=== PATIENT | female | born 1960 | race Caucasian/White ===

== ENCOUNTER → 2016-10-13 | Outpatient (CLI) | payer OTHER ==
[~2016-10-13] MED LIST: ALL180 PO; CRTOTS OT; DECONGESTANT; MOME50SP5; SYN25 PO
--- NOTE | 2016-10-13 14:44 | DIAGNOSTIC IMAGING REPORT ---
BONE SCAN 3 PHASE LIMITED HISTORY: Right ankle injury and pain. TECHNIQUE: Immediately and 3 hours following the intravenous administration of 27.5 mCi of technetium 99 M MDP, 3 phase bone scan of the bilateral ankles/feet were performed. COMPARISON STUDY: None. FINDINGS: No abnormalities uptake on the blood flow sequences. Small focus of radiotracer uptake within the right first MTP joint on the blood pool sequences. This is of doubtful clinical significance. Delayed sequences demonstrate small focus of radiotracer uptake seen in the expected location of the right lateral subtalar joint. No abnormal radiotracer uptake seen within the left foot. IMPRESSION: Small focus of radiotracer uptake seen at the expected location of the right lateral subtalar joint on the delayed sequences only. This is nonspecific and could be related to degenerative change. Follow-up plain film or MRI could be used for confirmation. Electronically signed by: Nguyễn Muniz M.D. 10/13/2016 2:42 PM Dictated Date/Time: 10/13/2016 2:33 PM
== END | disposition home or self-care (01) ==
LOC: C.NUCL 09:36
PROVIDERS: ATTEND Nurse Practitioner
DX: S99.911A Unspecified injury of right ankle, initial encounter (principal); X58.XXXA Exposure to other specified factors, initial encounter

== ENCOUNTER → 2016-12-11 | Outpatient (CLI) | payer OTHER | END | disposition home or self-care (01) | LOC: C.PAPS 13:44 | PROVIDERS: ATTEND Nurse Practitioner | DX: Z01.419 Encounter for gynecological examination (general) (routine) without abnormal findings (principal) ==

== ENCOUNTER → 2017-06-12 | Outpatient (CLI) | payer OTHER ==
[2017-06-12 16:06] LABS: CALCIUM 8.9 mg/dl (8.5-10.1)
[2017-06-12 16:21] LABS: THYROID STIMULATING HORMONE 0.898 uIu/ml (0.300-4.500)
== END | disposition home or self-care (01) ==
LOC: C.LAB1850 14:18
PROVIDERS: ATTEND Internal Medicine Endocrinology, Diabetes & Metabolism
DX: E03.9 Hypothyroidism, unspecified (principal); E06.3 Autoimmune thyroiditis; M81.0 Age-related osteoporosis without current pathological fracture

== ENCOUNTER 2022-08-10 14:35 | Inpatient (IN) ==
[2022-08-10] MEDS ORDERED: LORazepam 0.5 MG TAB PO STA (15:18)
--- NOTE | 2022-08-10 15:37 | XRay Report ---
XR chest 1V portable HISTORY: Hypertension COMPARISON: None. FINDINGS: The lungs are clear. Cardiac silhouette is normal in size. No pleural effusions. No pneumot horax. Mild calcified plaque within the aortic knob. IMPRESSION: No acute process. ACT 112: Negative or not required by law. Electronically signed by: Nguyễn Muniz M.D. 08/10/2022 3:36 PM
[2022-08-10 15:40] LABS: Appearance Urine Clear (Clear); Bacteria Urine Automated Negative (Negative); Bilirubin Urine Negative (Negative); Blood Urine Negative (Negative); Cast Urine Automated 0 /lpf (0-5); Color Urine Yellow; Glucose Urine UA Negative (Negative); Ketones Urine Negative (Negative); Leukocyte Esterase Urine 1+ (Negative); Nitrite Urine Negative (Negative); Protein Urine Negative (Negative); RBC Urine Automated 0-4 /hpf (0-4); Specific Gravity Urine 1.005 (1.000-1.030); Urobilinogen Urine Negative (Negative); pH Urine 7.5 (4.5-7.5)
[2022-08-10 15:42] LABS: iSTAT Creatinine 0.7 mg/dl (0.6-1.3); iSTAT Ionized Calcium 1.11 mmol/l (1.12-1.32); iSTAT Potassium 3.6 mmol/L (3.3-5.0)
[2022-08-10 15:45] LABS: Basophils # (auto) 0.06 K/uL (0-0.2); Basophils % (auto) 0.7 %; Eosinophils # (auto) 0.08 K/uL (0-0.50); Eosinophils % (auto) 0.9 %; Hemoglobin 13.9 g/dl (12.0-16.0); Immature Granulocytes # (auto) 0.03 K/uL (0.00-0.02); Immature Granulocytes % (auto) 0.3 %; Lymphocytes % (auto) 11.4 %; Mean Corpuscular Hemoglobin 28.8 pg (25.0-34.0); Mean Corpuscular Hgb Conc 33.9 g/dL (32.0-36.0); Mean Corpuscular Volume 84.9 fL (80.0-100.0); Mean Platelet Volume 9.9 fL (9.4-12.3); Monocytes # (auto) 0.55 K/uL (0.24-0.82); Monocytes % (auto) 6.3 %; Neutrophils # (auto) 7.07 K/uL (1.4-6.5); Neutrophils % (auto) 80.4 %; Platelet Count 291 K/uL (130-400); RDW Standard Deviation 40.3 fL (36.4-46.3); Red Blood Count 4.83 M/uL (3.93-5.22); White Blood Count 8.79 K/ul (4.8-10.8)
[2022-08-10] MEDS ORDERED: OPTIRAY 320 500ml IV ONE (15:47)
--- NOTE | 2022-08-10 16:02 | CT Scan Report ---
HEAD CT NONCONTRAST CT DOSE: HISTORY: Stroke Like Symptoms TECHNIQUE: Multiaxial CT images of the head were performed without the use of intravenous contrast. A utomated exposure control was utilized for this study. A dose lowering technique was utilized adheri ng to the principles of ALARA. Comparison: Head CT 03/17/2022. Findings: The paranasal sinuses and mastoid air cells are clear. The calvarium and skull base are int act. The ventricles and sulci are within normal limits. There is no mass, hematoma, midline shift, or acute infarct. Impression: No acute intracranial abnormality. ACT 112: Negative or not required by law. Electronically signed by: Nguyễn Muniz M.D. 08/10/2022 3:59 PM
--- NOTE | 2022-08-10 16:11 | CT Scan Report ---
HEAD & NECK CTA HISTORY: Stroke Like Symptoms TECHNIQUE: Multiaxial CT images of the head were performed following the intravenous administration o f contrast to evaluate the major cerebral vessels. Multiaxial CT images of the neck were also perform ed following the intravenous administration of contrast to evaluate the major cervical vessels. Maxim um intensity projection images were also obtained. A dose lowering technique was utilized adhering to the principles of ALARA. COMPARISON: None. FINDINGS: There is no mass, hematoma, midline shift, or acute infarct. Visualized intracranial internal carotid arteries, distal vertebral arteries, and basilar artery are widely patent. There is no significant s tenosis, occlusion, or aneurysm seen within the bilateral ACAs, MCAs, or plastic surgery specialist. The major dural venous sinuses appear patent. There is a hypoplastic distal left vertebral artery. Persistent left posterio r circulation is noted. The aortic arch and proximal great vessels are widely patent. There is no significant stenosis, occ lusion, or dissection identified within the bilateral common carotid, internal carotid, or vertebral arteries. There is a 4 mm saccular aneurysm at the distal right cervical internal carotid artery near the skull base best seen on coronal image 48. Moderate emphysema. Hypoplastic left vertebral artery. IMPRESSION: 1. No significant stenosis, occlusion, or aneurysm within the [place]. 2. No significant stenosis, occlusion, or dissection identified within the carotid or vertebral arter ies. 3. A 4 mm saccular aneurysm within the distal right cervical internal carotid artery. ACT 112: Negative or not required by law. Electronically signed by: Nguyễn Muniz M.D. 08/10/2022 4:08 PM
--- NOTE | 2022-08-10 16:11 | CT Scan Report ---
HEAD & NECK CTA HISTORY: Stroke Like Symptoms TECHNIQUE: Multiaxial CT images of the head were performed following the intravenous administration o f contrast to evaluate the major cerebral vessels. Multiaxial CT images of the neck were also perform ed following the intravenous administration of contrast to evaluate the major cervical vessels. Maxim um intensity projection images were also obtained. A dose lowering technique was utilized adhering to the principles of ALARA. COMPARISON: None. FINDINGS: There is no mass, hematoma, midline shift, or acute infarct. Visualized intracranial internal carotid arteries, distal vertebral arteries, and basilar artery are widely patent. There is no significant s tenosis, occlusion, or aneurysm seen within the bilateral ACAs, MCAs, or pattern scratcher. The major dural venous sinuses appear patent. There is a hypoplastic distal left vertebral artery. Persistent left posterio r circulation is noted. The aortic arch and proximal great vessels are widely patent. There is no significant stenosis, occ lusion, or dissection identified within the bilateral common carotid, internal carotid, or vertebral arteries. There is a 4 mm saccular aneurysm at the distal right cervical internal carotid artery near the skull base best seen on coronal image 48. Moderate emphysema. Hypoplastic left vertebral artery. IMPRESSION: 1. No significant stenosis, occlusion, or aneurysm within the [place]. 2. No significant stenosis, occlusion, or dissection identified within the carotid or vertebral arter ies. 3. A 4 mm saccular aneurysm within the distal right cervical internal carotid artery. ACT 112: Negative or not required by law. Electronically signed by: Nguyễn Muniz M.D. 08/10/2022 4:08 PM
[2022-08-10 16:24] LABS: Albumin Globulin Ratio 1.4 (0.9-2); Albumin Level 4.3 gm/dl (3.4-5.0); BUN Creatinine Ratio 22.4 (10-20); Bilirubin,Total 0.5 mg/dl (0.2-1.0); Calcium 9.4 mg/dl (8.5-10.1); Creatinine Clr Calc Pharmacy 92.5 ml/min; Est GFR (African American) 113.7 ml/min; Est GFR (Non-African American) 98.1 ml/min; Globulin 3.1 gm/dl (2.5-4.0); Potassium 3.6 mmol/L (3.5-5.1); Total Protein 7.4 gm/dl (6.0-8.3); Troponin I High Sensitivity 3.6 pg/ml (0-14)
[2022-08-10] MEDS ORDERED: hydrALAZINE HCL 20 MG/ML VIAL IV ONE (16:25)
[2022-08-10] MEDS ORDERED: ASPIRIN CHEW 324 MG PO STA (16:25)
--- NOTE | 2022-08-10 18:25 | History & Physical Report ---
Date of Service August 10, 2022 Assessment & Plan (1) Stroke-like symptoms: Plan: Present on admission with lightheadedness, palpitation, numbness and weakness all over her body. Possible related to TIA vs hypertensive urgency Need to r/o CVA CT head showed no acute intracranial abnormality. CTA head/neck showed no significant stenosis, occlusion, or aneurysm within the [place] of [place]. 4 mm saccular aneurysm within the distal right cervical inte rnal carotid artery. Received aspirin 325mg in the ER Will get MRI of head Will check resting echo Check lipid panel and Hba1c Neuro consult PT/OT/Speech eval Continue aspirin 81mg Continue neuro check Hypertensive urgency BP on admission 197/118 Pt is not on any BP meds BP improved to 137/88 Continue monitor Hx Breast cancer Continue anastrozole Follow up with oncology outpatient Osteoporosis Continue Boniva weekly continue calcium and vitamin D Hypothyroidism Will check TSH Continue levothyroxine DVT px on Lovenox Code status Full code History of Present Illness Chief Complaint: Strokelike symptom Dizziness Primary Care Provider: Jose Higgins MD 62-year-old female with past medical history of hypothyroidism, dyslipidemia, osteoporosis, left breast cancer, anxiety, allergic rhinitis presented to the ER with stroke like symptoms. Patient said today around noon she developed lightheadedness, palpitation, numbness and weakness all over her body. She went to the [facility] and she was advised to come to the ER. She said she thought her symptoms might be related to an allergic reaction from [place] that she just started. She said that she felt dizzy with the feeling the room was spinning. she became nauseated and her body felt weak and numb. She said that she could not tell if her vision was blurry because she was just put eyes drops. She said that she took the [place] last month and she did not develop any side effect. She said that in the past she used to have dizziness from her sinus problems but that is better because she has not been using meclizine for awhile. She said that there was no facial droop and no slurred speech. She said because of the dizziness her gait was unsteady. in the ER she was found with elevated blood pressure (197/112). Denies any chest pain, SOB, fever, rash, vomiting and diarrhea. Allergies Allergy/AdvReac Type Severity Reaction Status Date / Time adhesive tape Allergy Severe Rash Verified 08/10/22 15:47 Sulfa (Sulfonamide Allergy Severe Hives Verified 08/10/22 15:47 Antibiotics) metronidazole Allergy Intermediate Rash Verified 08/10/22 15:47 Home Medications Medication Instructions Recorded Confirmed Type guaifenesin 600 mg tablet, 600 mg PO BID PRN Congestion 06/20/19 08/10/22 History extended release 12 hr (Mucinex) multivitamin 1 tab PO DAILY 06/20/19 08/10/22 History cholecalciferol (vitamin D3) 25 1,000 unit PO DAILY 06/06/20 08/10/22 History mcg (1,000 unit) capsule anastrozole 1 mg tablet (Arimidex) 1 mg PO DAILY 10/09/21 08/10/22 History calcium carbonate 600 mg calcium 600 mg PO BID 10/09/21 08/10/22 History (1,500 mg) tablet fluticasone propionate 50 1 spray intranasal BID 10/09/21 08/10/22 History mcg/actuation nasal spray,suspension sodium chloride 0.65 % nasal spray 1 spray intranasal BID PRN Nasal 10/09/21 08/10/22 History aerosol (Saline Nasal) Congestion loratadine-pseudoephedrine ER 10 1 tab PO DAILY PRN Congestion 03/20/22 08/10/22 History mg-240 mg tablet,extended [id number] (Claritin-D 24 Hour) ibandronate 150 mg tablet (Boniva) See Rx Instructions PO .COMPLEX #6 06/18/22 08/10/22 Rx tabs oxybutynin chloride 5 mg 5 mg PO DAILY #90 tabs 07/04/22 08/10/22 Rx tablet,extended release 24 hr levothyroxine 75 mcg capsule 75 mcg PO DAILY #90 caps 07/07/22 08/10/22 Rx glucosamine fountain dipot-chond fountain 1 cap PO DAILY 08/10/22 08/10/22 History sod-C-Mn 500 mg-400 mg-66 mg-3 mg cap niacin 250 mg tablet 0 mg PO DAILY 08/10/22 08/10/22 History omega-3 fatty acids 1,000 mg 1,000 mg PO DAILY 08/10/22 08/10/22 History capsule Past Med/Surg History Medical History Allergic rhinitis Anxiety Female pelvic inflammatory disease Resolved in distant past GERD (gastroesophageal reflux disease) very rare Ingrid's thyroiditis High cholesterol History of ectopic Hyperglycemia resolved - 1979 Hyperlipidemia Hypothyroidism Interstitial cystitis Osteoporosis Surgical History History of breast surgery (09/11/21) Re-excision of left breast & SLN Biopsy (Dr. Argelia Augustin) + evacuation of hematoma History of fracture of wrist (12/2020) With plates/pins placed History of left breast biopsy (08/21/21) Core Biopsy (Dr. Argelia Augustin) History of removal of cyst (1986) Bartholin cyst removal - benign History of right breast biopsy (03/21/11) Core Biopsy/Lumpectomy - Atypical Ductal Hyperplasia (Dr. Gilbert) History of right breast biopsy (08/07/21) Ductal Hyperplasia found (Dr. Argelia Augustin) - opted for close imaging follow up History of surgery (09/14/17) Left Leg pins / rods placed in [place] Family History Mother No problems noted. Father , Passed age 82 of MD No problems noted. Sister , Passed age 18 of alcoholism/CVA No problems noted. Sister No problems noted. Sister No problems noted. Son No problems noted. 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 [employer] Feels Safe at Home: Yes Childhood Exposure to Second-Hand Smoke: Yes caffeine: No during the past year weight has: remained stable Dental Care, Regularly: Yes Assistive Devices: None Review of Systems Review of Systems: All systems reviewed & are unremarkable except as noted in HPI & below Physical Exam Physical Exam: General- No acute distress Head- atraumatic Eyes- PERRL, EOMI, ENT- oropharynx clear Neck- supple, no JVD Lungs- clear to auscultation Heart- regular rhythm; no murmur Abdomen- normal bowel sounds, soft, nontender Extremities- no calf tenderness Neuro- alert, oriented x 3; PERRL, EOMI; no facial palsy; no dysarthria, normal strength and sensation Skin- warm & dry Results & Data Results & Data ([facility]) Vital Signs (Past 12 Hours) Vital Signs Temp Pulse Pulse Resp BP BP Pulse Ox 08/10/22 18:15 72 16 137/88 99 08/10/22 16:26 72 16 175/100 H 99 08/10/22 15:35 68 18 188/105 H 100 08/10/22 15:06 69 18 177/104 H 98 08/10/22 15:06 98 08/10/22 14:40 36.6 C 77 18 197/112 H 98 O2 Del Method 08/10/22 18:15 Room Air 08/10/22 16:26 Room Air 08/10/22 15:35 Room Air 08/10/22 15:06 Room Air 08/10/22 15:06 Room Air 08/10/22 14:40 Room Air Diagnostic Findings Laboratory Results WBC 8.79 K/ul (4.8-10.8) 08/10/22 15: RBC 4.83 M/uL (3.93-5.22) 08/10/22 15:23 Hgb 13.9 g/dl (12.0-16.0) 08/10/22 15:23 POC Hgb 15.0 g/dl (12.0-16.0) 08/10/22 15:29 Hct 41.0 % (34.1-44.9) 08/10/22 15: POC Hct 44 % (37-47) 08/10/22 15:29 MCV 84.9 fL (80.0-100.0) 08/10/22 15: MCH 28.8 pg (25.0-34.0) 08/10/22 15: MCHC 33.9 g/dL (32.0-36.0) 08/10/22 15: RDW Std Deviation 40.3 fL (36.4-46.3) 08/10/22: RDW Coeff of Vidya 13.0 % (11.5-14.5) 08/10/22 15: Plt Count 291 K/uL (130-400) 08/10/22 15: MPV 9.9 fL (9.4-12.3) 08/10/22 15: Immature Gran % (Auto) 0.3 % 08/10/22 15: Neut % (Auto) 80.4 % 08/10/22 15: Lymph % (Auto) 11.4 % 08/10/22 15: Bee % (Auto) 6.3 % 08/10/22 15: Eos % (Auto) 0.9 % 08/10/22 15: Baso % (Auto) 0.7 % 08/10/22 15: Neut # (Auto) 7.07 K/uL (1.4-6.5) H 08/10/22: Lymph # (Auto) 1.00 K/uL (1.2-3.4) L 08/10/22 15: Bee # (Auto) 0.55 K/uL (0.24-0.82) 08/10/22 15: Eos # (Auto) 0.08 K/uL (0-0.50) 08/10/22 15: Baso # (Auto) 0.06 K/uL (0-0.2) 08/10/22: Immature Gran # (Auto) 0.03 K/uL (0.00-0.02) H 08/10/22 15: POC Sodium 129 mmol/L (135-144) L 08/10/22 15: Sodium 128 mmol/L (136-145) L 08/10/22 15: POC Potassium 3.6 mmol/L (3.3-5.0) 08/10/22 15: Potassium 3.6 mmol/L (3.5-5.1) 08/10/22 15: POC Chloride 95 mmol/L (101-112) L 08/10/22 15: Chloride 95 mmol/L (98-107) L 08/10/22 15: Carbon Dioxide 25 mmol/L (21-32) 08/10/22 15: POC Total CO2 24 mmol/L (24-31) 08/10/22 15: Anion Gap 8 (3-11) 08/10/22 15:23 POC Anion Gap 15.0 mmol/L (16-25) L 08/10/22 15: POC BUN 13 mg/dl (7-18) 08/10/22 15: BUN 13 mg/dl (6-23) 08/10/22 15: Creatinine 0.58 mg/dl (0.6-1.2) L 08/10/22 15: POC Creatinine 0.7 mg/dl (0.6-1.3) 08/10/22: Est Cr Clr Drug Dosing 92.5 ml/min 08/10/22 15: Est GFR ( Amer) 113.7 ml/min 08/10/22: Est GFR (Non-Af Amer) 98.1 ml/min 08/10/22 BUN/Creatinine Ratio 22.4 (10-20) H 08/10/22 15: Glucose 104 mg/dl (70-99(Fasting)) H 08/10/22: POC Glucose (other) 110 mg/dl (70-99) H 08/10/22: Calcium 9.4 mg/dl (8.5-10.1) 08/10/22 15: POC Ioniz Calcium Alysia 1.11 mmol/l (1.12-1.32) L 08/10/22: Total Bilirubin 0.5 mg/dl (0.2-1.0) 08/10/22 15: AST 17 U/L (13-39) 08/10/22: ALT 13 U/L (7-52) 08/10/22: Alkaline Phosphatase 57 U/L (34-104) 08/10/22 15: Troponin I High Sens 3.6 pg/ml (0-14) 08/10/22: Total Protein 7.4 gm/dl (6.0-8.3) 08/10/22: Albumin 4.3 gm/dl (3.4-5.0) 08/10/22 15: Globulin 3.1 gm/dl (2.5-4.0) 08/10/22: Albumin/Globulin Ratio 1.4 (0.9-2) 08/10/22 15: Urine Color Yellow 08/10/22 15:23 Urine Appearance Clear (Clear) 08/10/22 15: Urine pH 7.5 (4.5-7.5) 08/10/22 15:23 Ur Specific [place] 1.005 (1.000-1.030) 08/10/22 15:23 Urine Protein Negative (Negative) 08/10/22 15: Urine Glucose (UA) Negative (Negative) 08/10/22 15: Urine Ketones Negative (Negative) 08/10/22 15: Urine Blood Negative (Negative) 08/10/22 15: Urine Nitrite Negative (Negative) 08/10/22 15: Urine Bilirubin Negative (Negative) 08/10/22 15: Urine Urobilinogen Negative (Negative) 08/10/22 15: Ur Leukocyte Esterase 1+ (Negative) H 08/10/22 15: Urine WBC (Auto) 1-5 /hpf (0-5) 08/10/22 15: Urine RBC (Auto) 0-4 /hpf (0-4) 08/10/22 15: U Hyaline Cast (Auto) 0 /lpf (0-5) 08/10/22 15: U Epithel Cells (Auto) 5-10 /lpf (0-5) H 08/10/22 15:23 Urine Bacteria (Auto) Negative (Negative) 08/10/22 15:23 SARS-CoV-2, RNA, NAAT NEGATIVE (NEGATIVE) 08/10/22 16:05 Impressions Chest X-Ray 08/10/22 14:52 XR chest 1V portable HISTORY: Hypertension COMPARISON: None. FINDINGS: The lungs are clear. Cardiac silhouette is normal in size. No pleural effusions. No pneumothorax. Mild calcified plaque within the aortic knob. IMPRESSION: No acute process. ACT 112: Negative or not required by law. Electronically signed by: Nguyễn Muniz M.D. 08/10/2022 3:[address] 08/10/22 15:[address] DOSE: HISTORY: Stroke Like Symptoms TECHNIQUE: Multiaxial CT images of the head were performed without the use of intravenous contrast. Automated exposure control was utilized for this study. A dose lowering technique was utilized adhering to the principles of ALARA. Comparison: Head CT 03/17/2022. Findings: The paranasal sinuses and mastoid air cells are clear. The calvarium and skull base are intact. The ventricles and sulci are within normal limits. There is no mass, hematoma, midline shift, or acute infarct. Impression: No acute intracranial abnormality. ACT 112: Negative or not required by law. Electronically signed by: Nguyễn Muniz M.D. 08/10/2022 3:59 PM Head CTA 08/10/22 15:17 HEAD & NECK CTA HISTORY: Stroke Like Symptoms TECHNIQUE: Multiaxial CT images of the head were performed following the intravenous administration of contrast to evaluate the major cerebral vessels. Multiaxial CT images of the neck were also performed following the intravenous administration of contrast to evaluate the major cervical vessels. Maximum intensity projection images were also obtained. A dose lowering technique was utilized adhering to the principles of ALARA. COMPARISON: None. FINDINGS: There is no mass, hematoma, midline shift, or acute infarct. Visualized intracranial internal carotid arteries, distal vertebral arteries, and basilar artery are widely patent. There is no significant stenosis, occlusion, or aneurysm seen within the bilateral ACAs, MCAs, or seating upholsterer. The major dural venous sinuses appear patent. There is a hypoplastic distal left vertebral artery. Persistent left posterior circulation is noted. The aortic arch and proximal great vessels are widely patent. There is no significant stenosis, occlusion, or dissection identified within the bilateral common carotid, internal carotid, or vertebral arteries. There is a 4 mm saccular aneurysm at the distal right cervical internal carotid artery near the skull base best seen on coronal image 48. Moderate emphysema. Hypoplastic left vertebral artery. IMPRESSION: 1. No significant stenosis, occlusion, or aneurysm within the [place]. 2. No significant stenosis, occlusion, or dissection identified within the carotid or vertebral arteries. 3. A 4 mm saccular aneurysm within the distal right cervical internal carotid artery. ACT 112: Negative or not required by law. Electronically signed by: Nguyễn Muniz M.D. 08/10/2022 4:08 PM Neck CTA 08/10/22 15:17 HEAD & NECK CTA HISTORY: Stroke Like Symptoms TECHNIQUE: Multiaxial CT images of the head were performed following the intravenous administration of contrast to evaluate the major cerebral vessels. Multiaxial CT images of the neck were also performed following the intravenous administration of contrast to evaluate the major cervical vessels. Maximum intensity projection images were also obtained. A dose lowering technique was utilized adhering to the principles of ALARA. COMPARISON: None. FINDINGS: There is no mass, hematoma, midline shift, or acute infarct. Visualized intracranial internal carotid arteries, distal vertebral arteries, and basilar artery are widely patent. There is no significant stenosis, occlusion, or aneurysm seen within the bilateral ACAs, MCAs, or seating upholsterer. The major dural venous sinuses appear patent. There is a hypoplastic distal left vertebral artery. Persistent left posterior circulation is noted. The aortic arch and proximal great vessels are widely patent. There is no significant stenosis, occlusion, or dissection identified within the bilateral common carotid, internal carotid, or vertebral arteries. There is a 4 mm saccular aneurysm at the distal right cervical internal carotid artery near the skull base best seen on coronal image 48. Moderate emphysema. Hypoplastic left vertebral artery. IMPRESSION: 1. No significant stenosis, occlusion, or aneurysm within the [place]. 2. No significant stenosis, occlusion, or dissection identified within the carotid or vertebral arteries. 3. A 4 mm saccular aneurysm within the distal right cervical internal carotid artery. ACT 112: Negative or not required by law. Electronically signed by: Nguyễn Muniz M.D. 08/10/2022 4:08 PM Code Status & VTE Plan VTE Prophylaxis Plan VTE Prophylaxis will be ordered: Yes
--- NOTE | 2022-08-10 18:33 | Emergency Department Note ---
Impression & Plan Stroke-like symptoms, Severe hypertension, Acute hyponatremia ED Provider Note INFORMANT: Patient ED PROVIDER(S): Raffaele Tamayo MD CHIEF COMPLAINT: Numbness and dizziness PLAN: Disposition: Admitted Condition: Good Outpatient prescription management: none Referral: None MEDICAL DECISION MAKING: Patient presented complaining with about 3 hours worth of numbness and dizziness. She had some minor findings on examination. I did discuss this with nursing and an i-STAT was performed as well as additional labs. As we discussed the work-up and symptoms the patient was somewhat anxious. She did not appear to be panicked or having anxiety as the cause of the issues. She was offered and accepted a dose of lorazepam. Her ECG was normal. The patient was taken promptly for CT imaging including angiography. No acute thrombosis or ischemia were noted. The patient was found to have an incidental right ICA aneurysm. She was informed of this. Her CBC and chemistry panels revealed hyponatremia. The patient also had a negative urinalysis. Chest x-ray was negative. The patient had significantly high blood pressure. I did order hydralazine however on reassessment the patient's blood pressure did drop 25 points and her symptoms had abated. She was given a dose of aspirin. I discussed further management in the hospital will be necessary. [facility] Patient was evaluated in the ER and admitted for further management. Triage Nursing notes reviewed and agree them. Vital Signs: reviewed and remarkable for severe hypertension Differential diagnosis: CVA, TIA infection, dehydration, metabolic abnormality, hypo/hyperglycemia, electrolyte disturbance, anemia, hypoxia, cardiac sources, intracerebral event, toxicologic, neurologic, as well as other pathologies. Diagnostics interpreted by me: EC Lead ECG performed and revealed Normal sinus rhythm at 63, normal [place], QRS normal. No elevation or depression. No PACs or PVCs Cardiac Monitoring: Cardiac monitoring ordered by me: The patient was placed on continuous cardiac monitoring and observed. It revealed a normal sinus rhythm at 72 beats per minute without ectopy or evidence of dysrhythmia. Imaging studies: CT scans and chest x-ray as noted below HPI: The patient is a 62 year old female who presents to the Emergency Room with complaints of numbness and dizziness. This started about 3 hours ago and is persisting. The patient also notes the following associated symptoms, tingling in the left side of the face, occasional headaches, ongoing soreness in the left arm(For the last several months). The patient has taken no medication for relieving factors. Current pain is rated as 2/10. Patient states she is was in good health and eating normally. No sick contacts. Pt denies LOC, fevers, chills, diaphoresis, visual changes, neck pain, chest pain, breathing difficulties, nausea, vomiting, abdominal pain, back pain, melena, hematochezia, urinary symptoms, weakness, lymphadenopathy, rash, or other complaints. ROS: See above HPI for pertinent positives & negatives. A total of 10 systems reviewed and were otherwise negative. PAST MEDICAL HISTORY:See Below , breast cancer PAST SURGICAL HISTORY:See Below FAMILY HISTORY:See Below SOCIAL HISTORY:See Below, non-smoker HOME MEDICATIONS:See Below ALLERGIES:See Below VITALS:See Below PHYSICAL EXAMINATION: GENERAL: Awake, alert, concerned-appearing, in no distress HENT: Normocephalic, atraumatic. Oropharynx unremarkable. EYES: Normal conjunctiva. Sclera non-icteric. PERRLA. EOMI NECK: Inspection normal. Non-tender. Supple. No nuchal rigidity. FROM. No masses. RESPIRATORY: Clear to auscultation. No wheezes. No rales. Normal respiratory effort. CARDIAC: Normal rate. Normal rhythm. No murmurs. No rubs. Extremities warm and well perfused. Pulses equal. No JVD. GI: Soft, non-distended. No tenderness to palpation. No rebound or guarding. No masses. RECTAL: Deferred. MUSCULOSKELETAL: Atraumatic. Chest examination reveals no tenderness. The back is symmetrical on inspection without obvious abnormality. There is no CVA tenderness to palpation. No joint edema. LOWER EXTREMITIES: Calves are equal size bilaterally and non-tender. No edema. No discoloration. NEURO: Normal sensorium. Patient notes decreased sensation in the left side of the face no in the left arm. Other sensory or motor deficits noted. Speech normal. Cranial nerves II through XII tact otherwise. SKIN: No rash or jaundice noted. Raffaele Tamayo MD Past Med/Surg History Medical History Allergic rhinitis Anxiety Female pelvic inflammatory disease GERD (gastroesophageal reflux disease) Ingrid's thyroiditis High cholesterol History of ectopic Hyperglycemia Hyperlipidemia Hypothyroidism Interstitial cystitis Osteoporosis Surgical History History of breast surgery (09/11/21) History of fracture of wrist (12/2020) History of left breast biopsy (08/21/21) History of removal of cyst (1986) History of right breast biopsy (03/21/11) History of right breast biopsy (08/07/21) History of surgery (09/14/17) Family History Mother No problems noted. Father No problems noted. Sister No problems noted. Sister No problems noted. Sister No problems noted. Son No problems noted. 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 [employer] Feels Safe at Home: Yes Childhood Exposure to Second-Hand Smoke: Yes caffeine: No during the past year weight has: remained stable Dental Care, Regularly: Yes Allergies Allergies Allergy/AdvReac Type Severity Reaction Status Date / Time adhesive tape Allergy Severe Rash Verified 08/10/22 15:47 Sulfa (Sulfonamide Allergy Severe Hives Verified 08/10/22 15:47 Antibiotics) metronidazole Allergy Intermediate Rash Verified 08/10/22 15:47 Home Meds Home Medications Medication Instructions Recorded Confirmed guaifenesin 600 mg tablet, 600 mg PO BID PRN Congestion 06/20/19 08/10/22 extended release 12 hr (Mucinex) multivitamin 1 tab PO DAILY 06/20/19 08/10/22 cholecalciferol (vitamin D3) 25 1,000 unit PO DAILY 06/06/20 08/10/22 mcg (1,000 unit) capsule anastrozole 1 mg tablet (Arimidex) 1 mg PO DAILY 10/09/21 08/10/22 calcium carbonate 600 mg calcium 600 mg PO BID 10/09/21 08/10/22 (1,500 mg) tablet fluticasone propionate 50 1 spray intranasal BID 10/09/21 08/10/22 mcg/actuation nasal spray,suspension sodium chloride 0.65 % nasal spray 1 spray intranasal BID PRN Nasal 10/09/21 08/10/22 aerosol (Saline Nasal) Congestion loratadine-pseudoephedrine ER 10 1 tab PO DAILY PRN Congestion 03/20/22 08/10/22 mg-240 mg tablet,extended [id number] (Claritin-D 24 Hour) glucosamine fountain dipot-chond fountain 1 cap PO DAILY 08/10/22 08/10/22 sod-C-Mn 500 mg-400 mg-66 mg-3 mg cap niacin 250 mg tablet 0 mg PO DAILY 08/10/22 08/10/22 omega-3 fatty acids 1,000 mg 1,000 mg PO DAILY 08/10/22 08/10/22 capsule Previous Rx's Medication Instructions Recorded ibandronate 150 mg tablet (Boniva) See Rx Instructions PO .COMPLEX #6 06/18/22 tabs oxybutynin chloride 5 mg 5 mg PO DAILY #90 tabs 07/04/22 tablet,extended release 24 hr levothyroxine 75 mcg capsule 75 mcg PO DAILY #90 caps 07/07/22 Results & Data (ED) Vital Signs Vital Signs - 24 hr 08/10/22 14:40 08/10/22 15:06 08/10/22 15:06 Temperature 36.6 C Temperature Source Temporal Artery Scan Pulse Rate 77 Pulse Rate [Apical] 69 Respiratory Rate 18 18 Respiratory Effort / Characteristics Non-Labored Non-Labored Spontaneous Respiratory Depth Normal Normal Blood Pressure 197/112 H Blood Pressure [Right Arm] 177/104 H Blood Pressure Mean 140 Blood Pressure Mean [Right Arm] 128 Blood Pressure Position [Right Arm] Pulse Oximetry 98 98 98 Oxygen Delivery Method Room Air Room Air Room Air Sepsis Recent Fever Within 48 Hours No Sepsis New/Unexplained Change in Mental Status N/A Sepsis Action Taken by Nursing No Action Required 08/10/22 15:35 08/10/22 16:26 08/10/22 18:15 Temperature Temperature Source Pulse Rate Pulse Rate [Apical] 68 72 72 Respiratory Rate 18 16 16 Respiratory Effort / Characteristics Non-Labored Non-Labored Spontaneous Non-Labored Respiratory Depth Normal Normal Normal Blood Pressure Blood Pressure [Right Arm] 188/105 H 175/100 H 137/88 Blood Pressure Mean Blood Pressure Mean [Right Arm] 132 125 104 Blood Pressure Position [Right Arm] Lying Pulse Oximetry 100 99 99 Oxygen Delivery Method Room Air Room Air Room Air Sepsis Recent Fever Within 48 Hours Sepsis New/Unexplained Change in Mental Status Sepsis Action Taken by Nursing Laboratory Data Result diagrams: 08/10/22 15:23 08/10/22 15:23 Lab Results 08/10/22 08/10/22 08/10/22 Range/Units 15:23 15:23 15:23 WBC 8.79 (4.8-10.8) K/ul RBC 4.83 (3.93-5.22) M/uL Hgb 13.9 (12.0-16.0) g/dl POC Hgb (12.0-16.0) g/dl Hct 41.0 (34.1-44.9) % POC Hct (37-47) % MCV 84.9 (80.0-100.0) fL MCH 28.8 (25.0-34.0) pg MCHC 33.9 (32.0-36.0) g/dL RDW Std Deviation 40.3 (36.4-46.3) fL RDW Coeff of Vidya 13.0 (11.5-14.5) % Plt Count 291 (130-400) K/uL MPV 9.9 (9.4-12.3) fL Immature Gran % (Auto) 0.3 % Neut % (Auto) 80.4 % Lymph % (Auto) 11.4 % [place] % (Auto) 6.3 % Eos % (Auto) 0.9 % Baso % (Auto) 0.7 % Neut # (Auto) 7.07 H (1.4-6.5) K/uL Lymph # (Auto) 1.00 L (1.2-3.4) K/uL [place] # (Auto) 0.55 (0.24-0.82) K/uL Eos # (Auto) 0.08 (0-0.50) K/uL Baso # (Auto) 0.06 (0-0.2) K/uL Immature Gran # (Auto) 0.03 H (0.00-0.02) K/uL POC Sodium (135-144) mmol/L Sodium 128 L (136-145) mmol/L POC Potassium (3.3-5.0) mmol/L Potassium 3.6 (3.5-5.1) mmol/L POC Chloride (101-112) mmol/L Chloride 95 L (98-107) mmol/L Carbon Dioxide 25 (21-32) mmol/L POC Total CO2 (24-31) mmol/L Anion Gap 8 (3-11) POC Anion Gap (16-25) mmol/L POC BUN (7-18) mg/dl BUN 13 (6-23) mg/dl Creatinine 0.58 L (0.6-1.2) mg/dl POC Creatinine (0.6-1.3) mg/dl Est Cr Clr Drug Dosing 92.5 ml/min Est GFR ( Amer) 113.7 ml/min Est GFR (Non-Af Amer) 98.1 ml/min BUN/Creatinine Ratio 22.4 H (10-20) Glucose 104 H (70-99(Fasting)) mg/dl POC Glucose (other) (70-99) mg/dl Calcium 9.4 (8.5-10.1) mg/dl POC Ioniz Calcium [place]lys[place] (1.12-1.32) mmol/l Total Bilirubin 0.5 (0.2-1.0) mg/dl AST 17 (13-39) U/L ALT 13 (7-52) U/L Alkaline Phosphatase 57 (34-104) U/L Troponin I High Sens 3.6 (0-14) pg/ml Total Protein 7.4 (6.0-8.3) gm/dl Albumin 4.3 (3.4-5.0) gm/dl Globulin 3.1 (2.5-4.0) gm/dl Albumin/Globulin Ratio 1.4 (0.9-2) Urine Color Yellow Urine Appearance Clear (Clear) Urine pH 7.5 (4.5-7.5) Ur Specific [place] 1.005 (1.000-1.030) Urine Protein Negative (Negative) Urine Glucose (UA) Negative (Negative) Urine Ketones Negative (Negative) Urine Blood Negative (Negative) Urine Nitrite Negative (Negative) Urine Bilirubin Negative (Negative) Urine Urobilinogen Negative (Negative) Ur Leukocyte Esterase 1+ H (Negative) Urine WBC (Auto) 1-5 (0-5) /hpf Urine RBC (Auto) 0-4 (0-4) /hpf U Hyaline Cast (Auto) 0 (0-5) /lpf U Epithel Cells (Auto) 5-10 H (0-5) /lpf Urine Bacteria (Auto) Negative (Negative) SARS-CoV-2, RNA, NAAT (NEGATIVE) 08/10/22 08/10/22 Range/Units 15:29 16:05 WBC (4.8-10.8) K/ul RBC (3.93-5.22) M/uL Hgb (12.0-16.0) g/dl POC Hgb 15.0 (12.0-16.0) g/dl Hct (34.1-44.9) % POC Hct 44 (37-47) % MCV (80.0-100.0) fL MCH (25.0-34.0) pg MCHC (32.0-36.0) g/dL RDW Std Deviation (36.4-46.3) fL RDW Coeff of Vidya (11.5-14.5) % Plt Count (130-400) K/uL MPV (9.4-12.3) fL Immature Gran % (Auto) % Neut % (Auto) % Lymph % (Auto) % [place] % (Auto) % Eos % (Auto) % Baso % (Auto) % Neut # (Auto) (1.4-6.5) K/uL Lymph # (Auto) (1.2-3.4) K/uL [place] # (Auto) (0.24-0.82) K/uL Eos # (Auto) (0-0.50) K/uL Baso # (Auto) (0-0.2) K/uL Immature Gran # (Auto) (0.00-0.02) K/uL POC Sodium 129 L (135-144) mmol/L Sodium (136-145) mmol/L POC Potassium 3.6 (3.3-5.0) mmol/L Potassium (3.5-5.1) mmol/L POC Chloride 95 L (101-112) mmol/L Chloride (98-107) mmol/L Carbon Dioxide (21-32) mmol/L POC Total CO2 24 (24-31) mmol/L Anion Gap (3-11) POC Anion Gap 15.0 L (16-25) mmol/L POC BUN 13 (7-18) mg/dl BUN (6-23) mg/dl Creatinine (0.6-1.2) mg/dl POC Creatinine 0.7 (0.6-1.3) mg/dl Est Cr Clr Drug Dosing ml/min Est GFR ( Amer) ml/min Est GFR (Non-Af Amer) ml/min BUN/Creatinine Ratio (10-20) Glucose (70-99(Fasting)) mg/dl POC Glucose (other) 110 H (70-99) mg/dl Calcium (8.5-10.1) mg/dl POC Ioniz Calcium [place]lys[place] 1.11 L (1.12-1.32) mmol/l Total Bilirubin (0.2-1.0) mg/dl AST (13-39) U/L ALT (7-52) U/L Alkaline Phosphatase (34-104) U/L Troponin I High Sens (0-14) pg/ml Total Protein (6.0-8.3) gm/dl Albumin (3.4-5.0) gm/dl Globulin (2.5-4.0) gm/dl Albumin/Globulin Ratio (0.9-2) Urine Color Urine Appearance (Clear) Urine pH (4.5-7.5) Ur Specific [place] (1.000-1.030) Urine Protein (Negative) Urine Glucose (UA) (Negative) Urine Ketones (Negative) Urine Blood (Negative) Urine Nitrite (Negative) Urine Bilirubin (Negative) Urine Urobilinogen (Negative) Ur Leukocyte Esterase (Negative) Urine WBC (Auto) (0-5) /hpf Urine RBC (Auto) (0-4) /hpf U Hyaline Cast (Auto) (0-5) /lpf U Epithel Cells (Auto) (0-5) /lpf Urine Bacteria (Auto) (Negative) SARS-CoV-2, RNA, NAAT NEGATIVE (NEGATIVE) Administered Medications Discontinued Medications Aspirin (Aspirin Chew 324 Mg) 324 mg PO NOW STA Stop: 08/10/22 16:26 Last Admin: 08/10/22 16:35 Dose: 324 mg Documented By: VLADIMIR Hydralazine HCl (Hydralazine Hcl 20 Mg/Ml Vial) 5 mg IV NOW ONE Stop: 08/10/22 16:26 Last Admin: 08/10/22 16:36 Dose: Not Given Documented By: VLADIMIR Ioversol (Optiray 320 500ml) 114 ml IV ONCE ONE Stop: 08/10/22 15:48 Last Admin: 08/10/22 15:50 Dose: 114 ml Documented By: GARLAND Lorazepam (Lorazepam 0.5 Mg Tab) 0.5 mg PO NOW STA Stop: 08/10/22 15:19 Last Admin: 08/10/22 15:36 Dose: 0.5 mg Documented By: VLADIMIR Imaging Data Radiologist's Impression: Chest X-Ray 08/10/22 14:52 XR chest 1V portable HISTORY: Hypertension COMPARISON: None. FINDINGS: The lungs are clear. Cardiac silhouette is normal in size. No pleural effusions. No pneumothorax. Mild calcified plaque within the aortic knob. IMPRESSION: No acute process. ACT 112: Negative or not required by law. Electronically signed by: Nguyễn Muniz M.D. 08/10/2022 3:[address] 08/10/22 15:[address] DOSE: HISTORY: Stroke Like Symptoms TECHNIQUE: Multiaxial CT images of the head were performed without the use of intravenous contrast. Automated exposure control was utilized for this study. A dose lowering technique was utilized adhering to the principles of ALARA. Comparison: Head CT 03/17/2022. Findings: The paranasal sinuses and mastoid air cells are clear. The calvarium and skull base are intact. The ventricles and sulci are within normal limits. There is no mass, hematoma, midline shift, or acute infarct. Impression: No acute intracranial abnormality. ACT 112: Negative or not required by law. Electronically signed by: Nguyễn Muniz M.D. 08/10/2022 3:59 PM Head CTA 08/10/22 15:17 HEAD & NECK CTA HISTORY: Stroke Like Symptoms TECHNIQUE: Multiaxial CT images of the head were performed following the intravenous administration of contrast to evaluate the major cerebral vessels. Multiaxial CT images of the neck were also performed following the intravenous administration of contrast to evaluate the major cervical vessels. Maximum intensity projection images were also obtained. A dose lowering technique was utilized adhering to the principles of ALARA. COMPARISON: None. FINDINGS: There is no mass, hematoma, midline shift, or acute infarct. Visualized intracranial internal carotid arteries, distal vertebral arteries, and basilar artery are widely patent. 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 The major dural venous sinuses appear patent. There is a hypoplastic distal left vertebral artery. Persistent left posterior circulation is noted. The aortic arch and proximal great vessels are widely patent. There is no significant stenosis, occlusion, or dissection identified within the bilateral common carotid, internal carotid, or vertebral arteries. There is a 4 mm sacc ular aneurysm at the distal right cervical internal carotid artery near the skull base best seen on coronal image 48. Moderate emphysema. Hypoplastic left vertebral artery. IMPRESSION: 1. No significant stenosis, occlusion, or aneurysm within the [place]. 2. No significant stenosis, occlusion, or dissection identified within the carotid or vertebral arteries. 3. A 4 mm saccular aneurysm within the distal right cervical internal carotid artery. ACT 112: Negative or not required by law. Electronically signed by: Nguyễn Muniz M.D. 08/10/2022 4:08 PM Neck CTA 08/10/22 15:17 HEAD & NECK CTA HISTORY: Stroke Like Symptoms TECHNIQUE: Multiaxial CT images of the head were performed following the intravenous administration of contrast to evaluate the major cerebral vessels. Multiaxial CT images of the neck were also performed following the intravenous administration of contrast to evaluate the major cervical vessels. Maximum intensity projection images were also obtained. A dose lowering technique was u tilized adhering to the principles of ALARA. COMPARISON: None. FINDINGS: There is no mass, hematoma, midline shift, or acute infarct. Visualized intracranial internal carotid arteries, distal vertebral arteries, and basilar artery are widely patent. 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 The major dural venous sinuses appear patent. There is a hypoplastic distal left vertebral artery. Persistent left posterior circulation is noted. The aortic arch and proximal great vessels are widely patent. There is no significant stenosis, occlusion, or dissection identified within the bilateral common carotid, internal carotid, or vertebral arteries. There is a 4 mm saccular aneurysm at the distal right cervical internal carotid artery near the skull base best seen on coronal image 48. Moderate emphysema. Hypoplastic left vertebral artery. IMPRESSION: 1. No significant stenosis, occlusion, or aneurysm within the [place]. 2. No significant stenosis, occlusion, or dissection identified within the carotid or vertebral arteries. 3. A 4 mm saccular aneurysm within the distal right cervical internal carotid artery. ACT 112: Negative or not required by law. Electronically signed by: Nguyễn Muniz M.D. 08/10/2022 4:08 PM Discharge Plan Visit Data Chief Complaint: Dizziness Stated Complaint: LIGHTHEADED,NUMBNESS, NAUSEA-POSSIBLE MED REACTION ED Provider: Raffaele Tamayo Discharge Problem: Stroke-like symptoms, Severe hypertension, Acute hyponatremia Forms Stand Alone Forms: [facility] Prescriptions Prescriptions: No Action Saline Nasal 0.65 % aerosol,spray 1 spray intranasal BID PRN (Reason: Nasal Congestion) anastrozole [Arimidex] 1 mg tablet 1 mg PO DAILY Rx Instructions: to start Arimidex post radiation loratadine-pseudoephedrine [Claritin-D 24 Hour] 10-240 mg tablet extended release 24 hr 1 tab PO DAILY PRN (Reason: Congestion) oxybutynin chloride 5 mg tablet extended release 24hr 5 mg PO DAILY Qty: 90 0RF multivitamin tablet 1 tab PO DAILY guaifenesin [Mucinex] 600 mg tablet extended release 12hr 600 mg PO BID PRN (Reason: Congestion) fluticasone propionate 50 mcg/actuation spray,suspension 1 spray intranasal BID calcium carbonate 600 mg calcium (1,500 mg) tablet 600 mg PO BID ibandronate [Boniva] 150 mg tablet See Rx Instructions PO .COMPLEX Qty: 6 2RF Rx Instructions: orally 1 per month; TAKES ON THE . cholecalciferol (vitamin D3) 25 mcg (1,000 unit) capsule 1,000 unit PO DAILY levothyroxine 75 mcg capsule 75 mcg PO DAILY Qty: 90 1RF omega-3 fatty acids 1,000 mg Capsule 1,000 mg PO DAILY niacin 250 mg Tablet 0 mg PO DAILY Rx Instructions: PT UNSURE OF STRENGTH glucosam fountain [id number] [id number] mg Capsule 1 cap PO DAILY Referrals Referrals: Jose Higgins MD [Primary Care Provider] -
[2022-08-10] MEDS ORDERED: PHARMACIST DISCHARGE MED REC CONSULT PRN (20:19)
[2022-08-10] MEDS ORDERED: LORATADINE 10 MG TAB PO PRN (20:31)
[2022-08-10] MEDS ORDERED: PSEUDOEPHEDRINE HCL 30 MG TAB PO PRN (20:32)
[2022-08-10] MEDS ORDERED: OXYBUTYNIN CHLORIDE XL 5 MG TABCR PO SCH (21:30)
[2022-08-10] MEDS ORDERED: OMEGA-3 (PURIFIED FISH OIL) 1 GM CAP PO SCH (21:30)
[2022-08-10] MEDS ORDERED: ANASTROZOLE 1 MG TAB PO SCH (21:30)
[2022-08-10] MEDS ORDERED: CHOLECALCIFEROL 1,000 UNITS 25 MCG TAB PO SCH (21:30)
[2022-08-10] MEDS: FLUTICASONE PROPIONATE NA SPR 16 GM BTL SCH (22:12)
[2022-08-10] MEDS: SODIUM CHLORIDE 0.9% 1000ML 1,000 ML IV SCH (22:13)
[2022-08-10] MEDS: guaiFENesin 600 MG TABCR PO SCH (22:14)
[2022-08-10] MEDS ORDERED: LORazepam 0.5 MG TAB PO PRN (22:56)
[2022-08-11] MEDS ORDERED: LEVOTHYROXINE SODIUM 75 MCG TABLET PO SCH ×2 (04:00→09:00)
--- NOTE | 2022-08-11 07:01 | Magnetic Resonance Report ---
MRI OF THE BRAIN WITHOUT IV CONTRAST CLINICAL HISTORY: Strokelike symptoms. COMPARISON STUDY: CT of the brain dated 08/10/2022. TECHNIQUE: MRI of the brain was performed utilizing various T1 and T2-weighted sequences in the axial , sagittal, and coronal planes. IV contrast was not administered for this examination. FINDINGS: Brain parenchyma: There is minimal microangiopathic disease. There is no hemorrhage or mass effect. T here is no restricted diffusion to suggest acute ischemia. [place]-white matter differentiation is prese rved. No extra-axial fluid collection is seen. The cerebellar tonsils are normal in configuration. Ventricles, sulci, and cisterns: Normal in configuration. Pituitary and sella: Unremarkable. Intracranial vasculature: Normal flow voids are maintained at the skull base. Orbits: The bony orbits are grossly intact. Orbital contents are normal in appearance. Sinuses and mastoids: Clear. Calvarium: Unremarkable. Cervical cord: Partially visualized cervical spinal cord is normal in morphology and signal intensity . IMPRESSION: No acute intracranial abnormality. ACT 112: Negative or not required by law. Electronically signed by: Hector Fernandez M.D. 08/11/2022 7:00 AM
[2022-08-11 07:21] VITALS: TEMP 98.1
[2022-08-11 07:27] LABS: Basophils # (auto) 0.06 K/uL (0-0.2); Basophils % (auto) 1.3 %; Eosinophils % (auto) 4.2 %; Hematocrit (blood only) 39.4 % (34.1-44.9); Hemoglobin 13.1 g/dl (12.0-16.0); Immature Granulocytes # (auto) 0.03 K/uL (0.00-0.02); Immature Granulocytes % (auto) 0.6 %; Lymphocytes # (auto) 1.06 K/uL (1.2-3.4); Lymphocytes % (auto) 22.1 %; Mean Corpuscular Hgb Conc 33.2 g/dL (32.0-36.0); Mean Corpuscular Volume 87.2 fL (80.0-100.0); Mean Platelet Volume 9.6 fL (9.4-12.3); Monocytes # (auto) 0.48 K/uL (0.24-0.82); Neutrophils # (auto) 2.96 K/uL (1.4-6.5); Neutrophils % (auto) 61.8 %; Platelet Count 253 K/uL (130-400); RDW Coefficient of Variation 13.2 % (11.5-14.5); RDW Standard Deviation 42.3 fL (36.4-46.3); Red Blood Count 4.52 M/uL (3.93-5.22); White Blood Count 4.79 K/ul (4.8-10.8)
[2022-08-11 07:33] LABS: Estimated Average Glucose 120 mg/dl; Hemoglobin A1C 5.8 % (4.5-5.6)
[2022-08-11 07:52] LABS: BUN Creatinine Ratio 15.9 (10-20); Calcium 8.4 mg/dl (8.5-10.1); Chol HDL Ratio 3.6 (0-5); Creatinine Clr Calc Pharmacy 83.9 ml/min; Est GFR (African American) 110.6 ml/min; Est GFR (Non-African American) 95.5 ml/min
[2022-08-11] MEDS: FLUTICASONE PROPIONATE NA SPR 16 GM BTL SCH (08:36)
[2022-08-11] MEDS: guaiFENesin 600 MG TABCR PO SCH (08:36)
[2022-08-11] MEDS ORDERED: NIACIN 250 MG PO SCH (09:00)
[2022-08-11] MEDS ORDERED: OXYBUTYNIN CHLORIDE XL 5 MG TABCR PO SCH (09:00)
[2022-08-11] MEDS ORDERED: CHOLECALCIFEROL 1,000 UNITS 25 MCG TAB PO SCH (09:00)
[2022-08-11] MEDS ORDERED: OMEGA-3 (PURIFIED FISH OIL) 1 GM CAP PO SCH (09:00)
[2022-08-11] MEDS ORDERED: ENOXAPARIN INJ 40 MG/0.4 ML SYR SQ SCH (09:00)
[2022-08-11] MEDS ORDERED: ASPIRIN 81 MG ECTAB PO SCH (09:00)
[2022-08-11] MEDS ORDERED: MULTIVITAMIN TAB PO SCH (09:00)
[2022-08-11] MEDS ORDERED: ANASTROZOLE 1 MG TAB PO SCH (09:00)
[2022-08-11] MEDS ORDERED: NON-FORMULARY MEDICATION (Glucosam Su Dip-Chondroit-C-Mn 500-400-66-3 mg Capsule) PO SCH (09:00)
[2022-08-11] MEDS ORDERED: PHENAZOPYRIDINE HCL 200 MG TAB PO STA (09:48)
[2022-08-11] MEDS: SODIUM CHLORIDE 0.9% 1000ML 1,000 ML IV SCH (10:52)
[2022-08-11 11:19] VITALS: BP 124/71; O2SAT 94
--- NOTE | 2022-08-11 13:52 | Neurology Consultation ---
Date of Consultation August 11, 2022 Assessment & Plan (1) Dizziness: Impression: The patient began experiencing dizziness, whole body tingling sensation, fatigue and achiness yesterday around noon time. There was no focality of symptoms. Stroke work-up including brain MRI, echocardiogram, CT angiography's, were all unremarkable. Symptoms have been resolved. She was anxious but was not hyperventilating. Her blood pressure was significantly elevated, which has been normalized without any additional treatment. The cause of such symptoms is not clear at this time. Medication side effect, sinus congestion, probable anxiety, and unusual blood pressure fluctuation are potential contributors of such symptoms. There is no history, physical examination finding or imaging studies to suggest cerebrovascular accident or transient ischemic attack. There is no finding to suggest vertebrobasilar insuf ficiency, vertigo, or other primary neurological syndromes. Recommendations: There is no indication for aspirin or other antiplatelet treatment at this time. The patient is neurologically stable and can be discharged home. If her symptoms recur, and she will contact with neurology clinic for follow- up. (2) Tingling: Impression: As seen above. (3) Stroke-like symptoms: Impression: As seen above. (4) Severe hypertension: Impression: As seen above. Plan Thank you for the consultation. History of Present Illness Reason for Consultation: Dizziness, and generalized tingling and achiness with palpitation. 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 Symptoms started around noontime, she went to urgent care first, and was advised to go to emergency department. Initial presentation was not typical for cerebrovascular accident, however, she had head CT, CT angiography of head and neck, which were all unremarkable. She was tachycardic initially, and blood pressure was elevated, which improved mostly, and after receiving benzodiazepine. She reports that she was not anxious and was not hyperventilating. She had Boniva shot recently, and thought that this might be the reason of recent symptoms, however, her first dose a month ago, did not induce any similar symptoms. She has been on anastrozole for over a year, and has not experienced any similar symptoms on this medication before. She was recently feeling sinus congestion, and was using Claritin-D. She has been on oxybutynin for a while, and she has not had any similar side effects before because of persistent symptoms, the patient was admitted to hospital. Blood pressure was initially very elevated, which has been normalized without any additional treatment. She was initially started on aspirin. Stroke work-up including brain MRI, and echocardiogram were unremarkable. Today, she feels better. She denies any dizziness, vertigo, weakness, or tingling sensation currently. She can ambulate without difficulty. I have reviewed the patient's chart including imaging studies and visualized them personally. I have discussed the case with the patient and answer her questions in detail. Allergies Allergy/AdvReac Type Severity Reaction Status Date / Time adhesive tape Allergy Severe Rash Verified 08/10/22 15:47 Sulfa (Sulfonamide Allergy Severe Hives Verified 08/10/22 15:47 Antibiotics) metronidazole Allergy Intermediate Rash Verified 08/10/22 15:47 Home Medications Medication Instructions Recorded Confirmed Type guaifenesin 600 mg tablet, 600 mg PO BID PRN Congestion 06/20/19 08/10/22 History extended release 12 hr (Mucinex) multivitamin 1 tab PO DAILY 06/20/19 08/10/22 History cholecalciferol (vitamin D3) 25 1,000 unit PO DAILY 06/06/20 08/10/22 History mcg (1,000 unit) capsule anastrozole 1 mg tablet (Arimidex) 1 mg PO DAILY 10/09/21 08/10/22 History calcium carbonate 600 mg calcium 600 mg PO BID 10/09/21 08/10/22 History (1,500 mg) tablet fluticasone propionate 50 1 spray intranasal BID 10/09/21 08/10/22 History mcg/actuation nasal spray,suspension sodium chloride 0.65 % nasal spray 1 spray intranasal BID PRN Nasal 10/09/21 08/10/22 History aerosol (Saline Nasal) Congestion loratadine-pseudoephedrine ER 10 1 tab PO DAILY PRN Congestion 03/20/22 08/10/22 History mg-240 mg tablet,extended [id number] (Claritin-D 24 Hour) ibandronate 150 mg tablet (Boniva) See Rx Instructions PO .COMPLEX #6 06/18/22 08/10/22 Rx tabs oxybutynin chloride 5 mg 5 mg PO DAILY #90 tabs 07/04/22 08/10/22 Rx tablet,extended release 24 hr levothyroxine 75 mcg capsule 75 mcg PO DAILY #90 caps 07/07/22 08/10/22 Rx glucosamine fountain dipot-chond fountain 1 cap PO DAILY 08/10/22 08/10/22 History sod-C-Mn 500 mg-400 mg-66 mg-3 mg cap niacin 250 mg tablet 0 mg PO DAILY 08/10/22 08/10/22 History omega-3 fatty acids 1,000 mg 1,000 mg PO DAILY 08/10/22 08/10/22 History capsule Patient History Medical History Allergic rhinitis Anxiety Female pelvic inflammatory disease Resolved in distant past GERD (gastroesophageal reflux disease) very rare Ingrid's thyroiditis High cholesterol History of ectopic Hyperglycemia resolved - 1979 Hyperlipidemia Hypothyroidism Interstitial cystitis Osteoporosis Surgical History History of breast surgery (09/11/21) Re-excision of left breast & SLN Biopsy (Dr. Argelia Augustin) + evacuation of hematoma History of fracture of wrist (12/2020) With plates/pins placed History of left breast biopsy (08/21/21) Core Biopsy (Dr. Argelia Augustin) History of removal of cyst (1986) Bartholin cyst removal - benign History of right breast biopsy (03/21/11) Core Biopsy/Lumpectomy - Atypical Ductal Hyperplasia (Dr. Gilbert) History of right breast biopsy (08/07/21) Ductal Hyperplasia found (Dr. Argelia Augustin) - opted for close imaging follow up History of surgery (09/14/17) Left Leg pins / rods placed in [place] Family History Mother No problems noted. Father , Passed age 82 of ID No problems noted. Sister , Passed age 18 of alcoholism/CVA No problems noted. Sister No problems noted. Sister No problems noted. Son No problems noted. 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 HENT: Normal exam with inspection. CV: Hearth rhythm is regular. Neck: Supple, no carotid bruits. Lungs: Non-labored and comfortable breathing. Abdomen: Soft, non-tender, non-distended. Skin: No rash or ecchymosis. Extremities: No edema or cyanosis NEUROLOGICAL EXAMINATION: Mental Status: Alert and oriented to place, person and time. Cranial Nerves: II-XII are intact. No nystagmus. Funduscopy: Normal looking optic discs. Motor: 5/5 in all extremities without asymmetry.Left arm proximal motor exam is limited due to pain. Tone: Normal without spasticity or rigidity. DTRs: 2+ all. No Babinski. Sensory: Intact to all sensory modalities. Coordination: No dysmetria with FTN testing. Speech: Fluent. Comprehension is intact. Gait: Normal. No ataxia or abnormal walking pattern. Musculoskeletal: Normal muscle bulk, no atrophy. [place]Hallpike: negative Results & Data ([facility]) Vital Signs (Past 12 Hours) Vital Signs Temp Pulse Pulse Resp BP Pulse Ox O2 Del Method 08/11/22 08:00 64 08/11/22 11:18 36.7 C 69 18 124/71 94 Room Air 08/11/22 08:36 Room Air 08/11/22 07:21 36.7 C 66 16 133/76 95 Room Air 08/11/22 03:11 36.5 C 71 18 137/82 97 Room Air Laboratory Results Laboratory Results - last 24 hr 08/10/22 08/10/22 08/10/22 15:23 15:23 15:23 WBC 8.79 RBC 4.83 Hgb 13.9 POC Hgb Hct 41.0 POC Hct MCV 84.9 MCH 28.8 MCHC 33.9 RDW Std Deviation 40.3 RDW Coeff of Vidya 13.0 Plt Count 291 MPV 9.9 Immature Gran % (Auto) 0.3 Neut % (Auto) 80.4 Lymph % (Auto) 11.4 [place] % (Auto) 6.3 Eos % (Auto) 0.9 Baso % (Auto) 0.7 Neut # (Auto) 7.07 H Lymph # (Auto) 1.00 L [place] # (Auto) 0.55 Eos # (Auto) 0.08 Baso # (Auto) 0.06 Immature Gran # (Auto) 0.03 H POC Sodium Sodium 128 L POC Potassium Potassium 3.6 POC Chloride Chloride 95 L Carbon Dioxide 25 POC Total CO2 Anion Gap 8 POC Anion Gap POC BUN BUN 13 Creatinine 0.58 L POC Creatinine Est Cr Clr Drug Dosing 92.5 Est GFR ( Amer) 113.7 Est GFR (Non-Af Amer) 98.1 BUN/Creatinine Ratio 22.4 H Glucose 104 H POC Glucose (other) Estimat Average Glucose Hemoglobin A1c Calcium 9.4 POC Ioniz Calcium Alysia Total Bilirubin 0.5 AST 17 ALT 13 Alkaline Phosphatase 57 Troponin I High Sens 3.6 Total Protein 7.4 Albumin 4.3 Globulin 3.1 Albumin/Globulin Ratio 1.4 Triglycerides Cholesterol LDL Cholesterol, Calc VLDL Cholesterol, Calc HDL Cholesterol Cholesterol/HDL Ratio Urine Color Yellow Urine Appearance Clear Urine pH 7.5 Ur Specific [place] 1.005 Urine Protein Negative Urine Glucose (UA) Negative Urine Ketones Negative Urine Blood Negative Urine Nitrite Negative Urine Bilirubin Negative Urine Urobilinogen Negative Ur Leukocyte Esterase 1+ H Urine WBC (Auto) 1-5 Urine RBC (Auto) 0-4 U Hyaline Cast (Auto) 0 U Epithel Cells (Auto) 5-10 H Urine Bacteria (Auto) Negative SARS-CoV-2, RNA, NAAT 08/10/22 08/10/22 08/11/22 15:29 16:05 07:05 WBC 4.79 L RBC 4.52 Hgb 13.1 POC Hgb 15.0 Hct 39.4 POC Hct 44 MCV 87.2 MCH 29.0 MCHC 33.2 RDW Std Deviation 42.3 RDW Coeff of Vidya 13.2 Plt Count 253 MPV 9.6 Immature Gran % (Auto) 0.6 Neut % (Auto) 61.8 Lymph % (Auto) 22.1 [place] % (Auto) 10.0 Eos % (Auto) 4.2 Baso % (Auto) 1.3 Neut # (Auto) 2.96 Lymph # (Auto) 1.06 L [place] # (Auto) 0.48 Eos # (Auto) 0.20 Baso # (Auto) 0.06 Immature Gran # (Auto) 0.03 H POC Sodium 129 L Sodium POC Potassium 3.6 Potassium POC Chloride 95 L Chloride Carbon Dioxide POC Total CO2 24 Anion Gap POC Anion Gap 15.0 L POC BUN 13 BUN Creatinine POC Creatinine 0.7 Est Cr Clr Drug Dosing Est GFR ( Amer) Est GFR (Non-Af Amer) BUN/Creatinine Ratio Glucose POC Glucose (other) 110 H Estimat Average Glucose Hemoglobin A1c Calcium POC Ioniz Calcium Alysia 1.11 L Total Bilirubin AST ALT Alkaline Phosphatase Troponin I High Sens Total Protein Albumin Globulin Albumin/Globulin Ratio Triglycerides Cholesterol LDL Cholesterol, Calc VLDL Cholesterol, Calc HDL Cholesterol Cholesterol/HDL Ratio Urine Color Urine Appearance Urine pH Ur Specific [place] Urine Protein Urine Glucose (UA) Urine Ketones Urine Blood Urine Nitrite Urine Bilirubin Urine Urobilinogen Ur Leukocyte Esterase Urine WBC (Auto) Urine RBC (Auto) U Hyaline Cast (Auto) U Epithel Cells (Auto) Urine Bacteria (Auto) SARS-CoV-2, RNA, NAAT NEGATIVE 08/11/22 08/11/22 07:05 07:05 WBC RBC Hgb POC Hgb Hct POC Hct MCV MCH MCHC RDW Std Deviation RDW Coeff of Vidya Plt Count MPV Immature Gran % (Auto) Neut % (Auto) Lymph % (Auto) [place] % (Auto) Eos % (Auto) Baso % (Auto) Neut # (Auto) Lymph # (Auto) [place] # (Auto) Eos # (Auto) Baso # (Auto) Immature Gran # (Auto) POC Sodium Sodium 135 L POC Potassium Potassium 4.0 POC Chloride Chloride 106 Carbon Dioxide 22 POC Total CO2 Anion Gap 7 POC Anion Gap POC BUN BUN 10 Creatinine 0.63 POC Creatinine Est Cr Clr Drug Dosing 83.9 Est GFR ( Amer) 110.6 Est GFR (Non-Af Amer) 95.5 BUN/Creatinine Ratio 15.9 Glucose 86 POC Glucose (other) Estimat Average Glucose 120 Hemoglobin A1c 5.8 H Calcium 8.4 L POC Ioniz Calcium Alysia Total Bilirubin AST ALT Alkaline Phosphatase Troponin I High Sens Total Protein Albumin Globulin Albumin/Globulin Ratio Triglycerides 98 Cholesterol 200 LDL Cholesterol, Calc 124 VLDL Cholesterol, Calc 20 HDL Cholesterol 56 Cholesterol/HDL Ratio 3.6 Urine Color Urine Appearance Urine pH Ur Specific [place] Urine Protein Urine Glucose (UA) Urine Ketones Urine Blood Urine Nitrite Urine Bilirubin Urine Urobilinogen Ur Leukocyte Esterase Urine WBC (Auto) Urine RBC (Auto) U Hyaline Cast (Auto) U Epithel Cells (Auto) Urine Bacteria (Auto) SARS-CoV-2, RNA, NAAT Diagnostic Findings Chest X-Ray 08/10/22 14:52 XR chest 1V portable HISTORY: Hypertension COMPARISON: None. FINDINGS: The lungs are clear. Cardiac silhouette is normal in size. No pleural effusions. No pneumothorax. Mild calcified plaque within the aortic knob. IMPRESSION: No acute process. ACT 112: Negative or not required by law. Electronically signed by: Nguyễn Muniz M.D. 08/10/2022 3:[address] 08/10/22 15:[address] DOSE: HISTORY: Stroke Like Symptoms TECHNIQUE: Multiaxial CT images of the head were performed without the use of intravenous contrast. Automated exposure control was utilized for this study. A dose lowering technique was utilized adhering to the principles of ALARA. Comparison: Head CT 03/17/2022. Findings: The paranasal sinuses and mastoid air cells are clear. The calvarium and skull base are intact. The ventricles and sulci are within normal limits. There is no mass, hematoma, midline shift, or acute infarct. Impression: No acute intracranial abnormality. ACT 112: Negative or not required by law. Electronically signed by: Nguyễn Muniz M.D. 08/10/2022 3:59 PM Head CTA 08/10/22 15:17 HEAD & NECK CTA HISTORY: Stroke Like Symptoms TECHNIQUE: Multiaxial CT images of the head were performed following the intravenous administration of contrast to evaluate the major cerebral vessels. Multiaxial CT images of the neck were also performed following the intravenous administration of contrast to evaluate the major cervical vessels. Maximum intensity projection images were also obtained. A dose lowering technique was utilized adhering to the principles of ALARA. COMPARISON: None. FINDINGS: There is no mass, hematoma, midline shift, or acute infarct. Visualized intracranial internal carotid arteries, distal vertebral arteries, and basilar artery are widely patent. There is no significant stenosis, occlusion, or aneurysm seen within the bilateral ACAs, MCAs, or morals squad police officer. The major dural venous sinuses appear patent. There is a hypoplastic distal left vertebral artery. Persistent left posterior circulation is noted. The aortic arch and proximal great vessels are widely patent. There is no significant stenosis, occlusion, or dissection identified within the bilateral common carotid, internal carotid, or vertebral arteries. There is a 4 mm saccular aneurysm at the distal right cervical internal carotid artery near the skull base best seen on coronal image 48. Moderate emphysema. Hypoplastic left vertebral artery. IMPRESSION: 1. No significant stenosis, occlusion, or aneurysm within the [place]. 2. No significant stenosis, occlusion, or dissection identified within the carotid or vertebral arteries. 3. A 4 mm saccular aneurysm within the distal right cervical internal carotid artery. ACT 112: Negative or not required by law. Electronically signed by: Nguyễn Muniz M.D. 08/10/2022 4:08 PM Neck CTA 08/10/22 15:17 HEAD & NECK CTA HISTORY: Stroke Like Symptoms TECHNIQUE: Multiaxial CT images of the head were performed following the intravenous administration of contrast to evaluate the major cerebral vessels. Multiaxial CT images of the neck were also performed following the intravenous administration of contrast to evaluate the major cervical vessels. Maximum intensity projection images were also obtained. A dose lowering technique was utilized adhering to the principles of ALARA. COMPARISON: None. FINDINGS: There is no mass, hematoma, midline shift, or acute infarct. Visualized intracranial internal carotid arteries, distal vertebral arteries, and basilar artery are widely patent. There is no significant stenosis, occlusion, or aneurysm seen within the bilateral ACAs, MCAs, or morals squad police officer. The major dural venous sinuses appear patent. There is a hypoplastic distal left vertebral artery. Persistent left posterior circulation is noted. The aortic arch and proximal great vessels are widely patent. There is no significant stenosis, occlusion, or dissection identified within the bilateral common carotid, internal carotid, or vertebral arteries. There is a 4 mm saccul ar aneurysm at the distal right cervical internal carotid artery near the skull base best seen on coronal image 48. Moderate emphysema. Hypoplastic left vertebral artery. IMPRESSION: 1. No significant stenosis, occlusion, or aneurysm within the [place]. 2. No significant stenosis, occlusion, or dissection identified within the carotid or vertebral arteries. 3. A 4 mm saccular aneurysm within the distal right cervical internal carotid artery. ACT 112: Negative or not required by law. Electronically signed by: Nguyễn Muniz M.D. 08/10/2022 4:08 PM Brain MRI 08/10/22 17:48 MRI OF THE BRAIN WITHOUT IV CONTRAST CLINICAL HISTORY: Strokelike symptoms. COMPARISON STUDY: CT of the brain dated 08/10/2022. TECHNIQUE: MRI of the brain was performed utilizing various T1 and T2-weighted sequences in the axial, sagittal, and coronal planes. IV contrast was not administered for this examination. FINDINGS: Brain parenchyma: There is minimal microangiopathic disease. There is no hemorrhage or mass effect. There is no restricted diffusion to suggest acute ischemia. [place]-white matter differentiation is preserved. No extra-axial fluid collection is seen. The cerebellar tonsils are normal in configuration. Ventricles, sulci, and cisterns: Normal in configuration. Pituitary and sella: Unremarkable. Intracranial vasculature: Normal flow voids are maintained at the skull base. Orbits: The bony orbits are grossly intact. Orbital contents are normal in appearance. Sinuses and mastoids: Clear. Calvarium: Unremarkable. Cervical cord: Partially visualized cervical spinal cord is normal in morphology and signal intensity. IMPRESSION: No acute intracranial abnormality. ACT 112: Negative or not required by law. Electronically signed by: Hector Fernandez M.D. 08/11/2022 7:00 AM ECHO-- normal
[2022-08-11] MEDS ORDERED: STROKE PATIENT DISCHARGE STA (14:29)
[2022-08-11 14:38] VITALS: PULSE 69
--- NOTE | 2022-08-12 06:11 | Electrocardiogram Report ---
Test Reason : Blood Pressure : / mmHG Vent. Rate : 063 BPM Atrial Rate : 063 BPM P-R Int : 166 ms QRS Dur : 082 ms QT Int : 406 ms P-R-T Axes : 021 017 030 degrees QTc Int : 415 ms Normal sinus rhythm Normal ECG When compared with ECG of 24-DEC-2020 09:19, No significant change was found Confirmed by Ulises Orozco ([id number]) on 08/12/2022 6:11:02 AM Referred By: REFERRED SELF Confirmed By:Ulises Orozco
--- NOTE | 2022-08-14 10:46 | Discharge Summary ---
Date of Service August 11, 2022 Admission HPI Per Admitting Provider 62-year-old female with past medical history of hypothyroidism, dyslipidemia, osteoporosis, left breast cancer, anxiety, allergic rhinitis presented to the ER with stroke like symptoms. Patient said today around noon she developed lightheadedness, palpitation, numbness and weakness all over her body. She went to the [facility] and she was advised to come to the ER. She said she thought her symptoms might be related to an allergic reaction from Craig that she just started. She said that she felt dizzy with the feeling the room was spinning. she became nauseated and her body felt weak and numb. She said that she could not tell if her vision was blurry because she was just put eyes drops. She said that she took the Craig last month and she did not develop any side effect. She said that in the past she used to have dizziness from her sinus problems but that is better because she has not been using meclizine for awhile. She said that there was no facial droop and no slurred speech. She said because of the dizziness her gait was unsteady. in the ER she was found with elevated blood pressure (197/112). Denies any chest pain, SOB, fever, rash, vomiting and diarrhea. Admission Exam Per Admitting Provider General- No acute distress Head- atraumatic Eyes- PERRL, EOMI, ENT- oropharynx clear Neck- supple, no JVD Lungs- clear to auscultation Heart- regular rhythm; no murmur Abdomen- normal bowel sounds, soft, nontender Extremities- no calf tenderness Neuro- alert, oriented x 3; PERRL, EOMI; no facial palsy; no dysarthria, normal strength and sensation Skin- warm & dry Principal Diagnosis Stroke-like symptoms: Hypertensive urgency Hx Breast cancer Osteoporosis Hypothyroidism Discharge Exam General- No acute distress Head- atraumatic Eyes- PERRL, EOMI, ENT- oropharynx clear Neck- supple, no JVD Lungs- clear to auscultation Heart- regular rhythm; no murmur Abdomen- normal bowel sounds, soft, nontender Extremities- no calf tenderness Neuro- alert, oriented x 3; PERRL, EOMI; no facial palsy; no dysarthria, normal strength and sensation Skin- warm & dry Discharge Data Allergies Allergy/AdvReac Type Severity Reaction Status Date / Time adhesive tape Allergy Severe Rash Verified 08/10/22 15:47 Sulfa (Sulfonamide Allergy Severe Hives Verified 08/10/22 15:47 Antibiotics) metronidazole Allergy Intermediate Rash Verified 08/10/22 15:47 Consultations 08/10/22 17:00 ED Decision to Admit Stat 08/10/22 20:19 Consult Neurology Routine Ordered Studies 08/10/22 15:17 CT angio head w con Stat CT angio neck with con Stat CT head/brain wo con Stat 08/10/22 17:48 MR brain wo con Stat Laboratory Results WBC 4.79 K/ul (4.8-10.8) L 08/11/22 07:05 RBC 4.52 M/uL (3.93-5.22) 08/11/22 07:05 Hgb 13.1 g/dl (12.0-16.0) 08/11/22 07:05 POC Hgb 15.0 g/dl (12.0-16.0) 08/10/22 15:29 Hct 39.4 % (34.1-44.9) 08/11/22 07:05 POC Hct 44 % (37-47) 08/10/22 15:29 MCV 87.2 fL (80.0-100.0) 08/11/22 07:05 MCH 29.0 pg (25.0-34.0) 08/11/22 07:05 MCHC 33.2 g/dL (32.0-36.0) 08/11/22 07:05 RDW Std Deviation 42.3 fL (36.4-46.3) 08/11/22 07:05 RDW Coeff of Vidya 13.2 % (11.5-14.5) 08/11/22 07:05 Plt Count 253 K/uL (130-400) 08/11/22 07:05 MPV 9.6 fL (9.4-12.3) 08/11/22 07:05 Immature Gran % (Auto) 0.6 % 08/11/22 07:05 Neut % (Auto) 61.8 % 08/11/22 07:05 Lymph % (Auto) 22.1 % 08/11/22 07:05 [place] % (Auto) 10.0 % 08/11/22 07:05 Eos % (Auto) 4.2 % 08/11/22 07:05 Baso % (Auto) 1.3 % 08/11/22 07:05 Neut # (Auto) 2.96 K/uL (1.4-6.5) 08/11/22 07:05 Lymph # (Auto) 1.06 K/uL (1.2-3.4) L 08/11/22 07:05 [place] # (Auto) 0.48 K/uL (0.24-0.82) 08/11/22 07:05 Eos # (Auto) 0.20 K/uL (0-0.50) 08/11/22 07:05 Baso # (Auto) 0.06 K/uL (0-0.2) 08/11/22 07:05 Immature Gran # (Auto) 0.03 K/uL (0.00-0.02) H 08/11/22 07:05 POC Sodium 129 mmol/L (135-144) L 08/10/22 15:29 Sodium 135 mmol/L (136-145) L 08/11/22 07:05 POC Potassium 3.6 mmol/L (3.3-5.0) 08/10/22 15:29 Potassium 4.0 mmol/L (3.5-5.1) 08/11/22 07:05 POC Chloride 95 mmol/L (101-112) L 08/10/22 15:29 Chloride 106 mmol/L (98-107) 08/11/22 07:05 Carbon Dioxide 22 mmol/L (21-32) 08/11/22 07:05 POC Total CO2 24 mmol/L (24-31) 08/10/22 15:29 Anion Gap 7 (3-11) 08/11/22 07:05 POC Anion Gap 15.0 mmol/L (16-25) L 08/10/22 15:29 POC BUN 13 mg/dl (7-18) 08/10/22 15:29 BUN 10 mg/dl (6-23) 08/11/22 07:05 Creatinine 0.63 mg/dl (0.6-1.2) 08/11/22 07:05 POC Creatinine 0.7 mg/dl (0.6-1.3) 08/10/22 15:29 Est Cr Clr Drug Dosing 83.9 ml/min 08/11/22 07:05 Est GFR ( Amer) 110.6 ml/min 08/11/22 07:05 Est GFR (Non-Af Amer) 95.5 ml/min 08/11/22 07:05 BUN/Creatinine Ratio 15.9 (10-20) 08/11/22 07:05 Glucose 86 mg/dl (70-99(Fasting)) 08/11/22 07:05 POC Glucose (other) 110 mg/dl (70-99) H 08/10/22 15:29 Estimat Average Glucose 120 mg/dl 08/11/22 07:05 Hemoglobin A1c 5.8 % (4.5-5.6) H 08/11/22 07:05 Calcium 8.4 mg/dl (8.5-10.1) L 08/11/22 07:05 POC Ioniz Calcium Alys[place] 1.11 mmol/l (1.12-1.32) L 08/10/22 15:29 Total Bilirubin 0.5 mg/dl (0.2-1.0) 08/10/22 15:23 AST 17 U/L (13-39) 08/10/22 15:23 ALT 13 U/L (7-52) 08/10/22 15:23 Alkaline Phosphatase 57 U/L (34-104) 08/10/22 15:23 Troponin I High Sens 3.6 pg/ml (0-14) 08/10/22 15:23 Total Protein 7.4 gm/dl (6.0-8.3) 08/10/22 15:23 Albumin 4.3 gm/dl (3.4-5.0) 08/10/22 15:23 Globulin 3.1 gm/dl (2.5-4.0) 08/10/22 15:23 Albumin/Globulin Ratio 1.4 (0.9-2) 08/10/22 15:23 Triglycerides 98 mg/dl (0-150) 08/11/22 07:05 Cholesterol 200 mg/dl (0-200) 08/11/22 07:05 LDL Cholesterol, Calc 124 mg/dl 08/11/22 07:05 VLDL Cholesterol, Calc 20 mg/dl (0-30) 08/11/22 07:05 HDL Cholesterol 56 mg/dl 08/11/22 07:05 Cholesterol/HDL Ratio 3.6 (0-5) 08/11/22 07:05 Urine Color Yellow 08/10/22 15: Urine Appearance Clear (Clear) 08/10/22 15: Urine pH 7.5 (4.5-7.5) 08/10/22 15:23 Ur Specific [place] 1.005 (1.000-1.030) 08/10/22 15:23 Urine Protein Negative (Negative) 08/10/22 15: Urine Glucose (UA) Negative (Negative) 08/10/22 15: Urine Ketones Negative (Negative) 08/10/22 15: Urine Blood Negative (Negative) 08/10/22 15: Urine Nitrite Negative (Negative) 08/10/22 15: Urine Bilirubin Negative (Negative) 08/10/22 15: Urine Urobilinogen Negative (Negative) 08/10/22 15:23 Ur Leukocyte Esterase 1+ (Negative) H 08/10/22 15: Urine WBC (Auto) 1-5 /hpf (0-5) 08/10/22 15: Urine RBC (Auto) 0-4 /hpf (0-4) 08/10/22 15: U Hyaline Cast (Auto) 0 /lpf (0-5) 08/10/22 15: U Epithel Cells (Auto) 5-10 /lpf (0-5) H 08/10/22 15:23 Urine Bacteria (Auto) Negative (Negative) 08/10/22 15:23 SARS-CoV-2, RNA, NAAT NEGATIVE (NEGATIVE) 08/10/22 16:05 Impressions Chest X-Ray 08/10/22 14:52 XR chest 1V portable HISTORY: Hypertension COMPARISON: None. FINDINGS: The lungs are clear. Cardiac silhouette is normal in size. No pleural effusions. No pneumothorax. Mild calcified plaque within the aortic knob. IMPRESSION: No acute process. ACT 112: Negative or not required by law. Electronically signed by: Nguyễn Muniz M.D. 08/10/2022 3:[address] 08/10/22 15:[address] DOSE: HISTORY: Stroke Like Symptoms TECHNIQUE: Multiaxial CT images of the head were performed without the use of intravenous contrast. Automated exposure control was utilized for this study. A dose lowering technique was utilized adhering to the principles of ALARA. Comparison: Head CT 03/17/2022. Findings: The paranasal sinuses and mastoid air cells are clear. The calvarium and skull base are intact. The ventricles and sulci are within normal limits. There is no mass, hematoma, midline shift, or acute infarct. Impression: No acute intracranial abnormality. ACT 112: Negative or not required by law. Electronically signed by: Nguyễn Muniz M.D. 08/10/2022 3:59 PM Head CTA 08/10/22 15:17 HEAD & NECK CTA HISTORY: Stroke Like Symptoms TECHNIQUE: Multiaxial CT images of the head were performed following the intravenous administration of contrast to evaluate the major cerebral vessels. Multiaxial CT images of the neck were also performed following the intravenous administration of contrast to evaluate the major cervical vessels. Maximum intensity projection images were also obtained. A dose lowering technique was utilized adhering to the principles of ALARA. COMPARISON: None. FINDINGS: There is no mass, hematoma, midline shift, or acute infarct. Visualized intracranial internal carotid arteries, distal vertebral arteries, and basilar artery are widely patent. There is no significant stenosis, occlusion, or aneurysm seen within the bilateral ACAs, MCAs, or net web developer. The major dural venous sinuses appear patent. There is a hypoplastic distal left vertebral artery. Persistent left posterior circulation is noted. The aortic arch and proximal great vessels are widely patent. There is no significant stenosis, occlusion, or dissection identified within the bilateral common carotid, internal carotid, or vertebral arteries. There is a 4 mm saccular aneurysm at the distal right cervical internal carotid artery near the skull base best seen on coronal image 48. Moderate emphysema. Hypoplastic left vertebral artery. IMPRESSION: 1. No significant stenosis, occlusion, or aneurysm within the [place]. 2. No significant stenosis, occlusion, or dissection identified within the carotid or vertebral arteries. 3. A 4 mm saccular aneurysm within the distal right cervical internal carotid artery. ACT 112: Negative or not required by law. Electronically signed by: Nguyễn Muniz M.D. 08/10/2022 4:08 PM Neck CTA 08/10/22 15:17 HEAD & NECK CTA HISTORY: Stroke Like Symptoms TECHNIQUE: Multiaxial CT images of the head were performed following the intravenous administration of contrast to evaluate the major cerebral vessels. Multiaxial CT images of the neck were also performed following the intravenous administration of contrast to evaluate the major cervical vessels. Maximum intensity projection images were also obtained. A dose lowering technique was utilized adhering to the principles of ALARA. COMPARISON: None. FINDINGS: There is no mass, hematoma, midline shift, or acute infarct. Visualized intracranial internal carotid arteries, distal vertebral arteries, and basilar artery are widely patent. There is no significant stenosis, occlusion, or aneurysm seen within the bilateral ACAs, MCAs, or net web developer. The major dural venous sinuses appear patent. There is a hypoplastic distal left vertebral artery. Persistent left posterior circulation is noted. The aortic arch and proximal great vessels are widely patent. There is no significant stenosis, occlusion, or dissection identified within the bilateral common carotid, internal carotid, or vertebral arteries. There is a 4 mm saccular aneurysm at the distal right cervical internal carotid artery near the skull base best seen on coronal image 48. Moderate emphysema. Hypoplastic left vertebral artery. IMPRESSION: 1. No significant stenosis, occlusion, or aneurysm within the [place]. 2. No significant stenosis, occlusion, or dissection identified within the carotid or vertebral arteries. 3. A 4 mm saccular aneurysm within the distal right cervical internal carotid artery. ACT 112: Negative or not required by law. Electronically signed by: Nguyễn Muniz M.D. 08/10/2022 4:08 PM Brain MRI 08/10/22 17:48 MRI OF THE BRAIN WITHOUT IV CONTRAST CLINICAL HISTORY: Strokelike symptoms. COMPARISON STUDY: CT of the brain dated 08/10/2022. TECHNIQUE: MRI of the brain was performed utilizing various T1 and T2-weighted sequences in the axial, sagittal, and coronal planes. IV contrast was not administered for this examination. FINDINGS: Brain parenchyma: There is minimal microangiopathic disease. There is no hemorrhage or mass effect. There is no restricted diffusion to suggest acute ischemia. [place]-white matter differentiation is preserved. No extra-axial fluid collection is seen. The cerebellar tonsils are normal in configuration. Ventricles, sulci, and cisterns: Normal in configuration. Pituitary and sella: Unremarkable. Intracranial vasculature: Normal flow voids are maintained at the skull base. Orbits: The bony orbits are grossly intact. Orbital contents are normal in appearance. Sinuses and mastoids: Clear. Calvarium: Unremarkable. Cervical cord: Partially visualized cervical spinal cord is normal in morphology and signal intensity. IMPRESSION: No acute intracranial abnormality. ACT 112: Negative or not required by law. Electronically signed by: Hector Fernandez M.D. 08/11/2022 7:00 AM Hospital Course (1) Stroke-like symptoms: Present on admission with lightheadedness, palpitation, numbness and weakness all over her body. Possible related to TIA vs hypertensive urgency Need to r/o CVA CT head showed no acute intracranial abnormality. CTA head/neck showed no significant stenosis, occlusion, or aneurysm within the [place]. 4 mm saccular aneurysm within the distal right cervical internal carotid artery. Received aspirin 325mg in the ER MRI head showed No acute intracranial abnormality. Echo showed no LV wall motion abnormality. No interatrial shunt noted. EF 60-65 % Neuro consulted Case discussed with neurology no additional testing needed no indication for aspirin or other antiplatelet treatment at this time as per Neuro PT/OT/Speech consulted OK from neurology standpoint to discharge home Hypertensive urgency BP on admission 197/118 Pt is not on any BP meds BP improved without any med Continue monitor Hx Breast cancer Continue anastrozole Follow up with oncology outpatient Osteoporosis Continue Boniva weekly continue calcium and vitamin D Hypothyroidism Continue levothyroxine DVT px on Lovenox Code status Full code Total Time Total Time Spent Total Time Spent (In Minutes): 35 minutes Discharge Plan Discharge Items Patient Disposition: Home - Self-Care Reason For Visit: DIZZINESS/STROKE LIKE SYMPTOMS Discharge Diagnosis: Stroke-like symptoms: Hypertensive urgency Hx Breast cancer Osteoporosis Hypothyroidism Activity: Resume your previous activity Non-emergency contact: Primary Care Provider Call non-emergency contact if: you have any medication questions Follow-up/Referrals: Jose Higgins MD [Primary Care Provider] - (Date & Time 08/18/2022 10:40 AM Provider Jose Higgins MD [facility] ) Diet: Heart Healthy Addtl Attending Provider Instructions: Follow up with your primary care provider 08/18/2022 @ 10:40 AM Jose Higgins MD [facility] Continue monitor your blood pressure and bring your blood log at your next appointment with your primary care provider Check BMP in 1 week to monitor your sodium level Seek medical attention if your symptoms worsening Pending Studies at Discharge: No Stand-Alone Forms: My [employer], Smoking Cessation Medications and DC Order Prescriptions: Continued Saline Nasal 0.65 % aerosol,spray 1 spray intranasal BID PRN (Reason: Nasal Congestion) anastrozole [Arimidex] 1 mg tablet 1 mg PO DAILY Rx Instructions: to start Arimidex post radiation loratadine-pseudoephedrine [Claritin-D 24 Hour] 10-240 mg tablet extended release 24 hr 1 tab PO DAILY PRN (Reason: Congestion) oxybutynin chloride 5 mg tablet extended release 24hr 5 mg PO DAILY Qty: 90 0RF multivitamin tablet 1 tab PO DAILY guaifenesin [Mucinex] 600 mg tablet extended release 12hr 600 mg PO BID PRN (Reason: Congestion) fluticasone propionate 50 mcg/actuation spray,suspension 1 spray intranasal BID calcium carbonate 600 mg calcium (1,500 mg) tablet 600 mg PO BID ibandronate [Boniva] 150 mg tablet See Rx Instructions PO .COMPLEX Qty: 6 2RF Rx Instructions: orally 1 per month; TAKES ON THE . cholecalciferol (vitamin D3) 25 mcg (1,000 unit) capsule 1,000 unit PO DAILY levothyroxine 75 mcg capsule 75 mcg PO DAILY Qty: 90 1RF omega-3 fatty acids 1,000 mg Capsule 1,000 mg PO DAILY niacin 250 mg Tablet 0 mg PO DAILY Rx Instructions: PT UNSURE OF STRENGTH glucosam fountain [id number] [id number] mg Capsule 1 cap PO DAILY Discharge Orders: Discharge Order (Routine); Ordered 08/11/22 Ordered By: Fransico Cyr Admission Data Admit Date/Time: 08/10/22 17:48 Attending Provider: Fransico Cyr Admit Provider: Fransico Cyr Primary Care Provider: Jose Higgins Other Providers: Fransico Cyr ; Lino Alvarez Other Interventions: Discharge Summary Assessment (RN) Last Done: 08/11/22 14:33
== END 2022-08-11 15:14 | disposition home or self-care (01) | DRG 305 ==
LOC: ED 14:35 → 2N 17:48